=== PATIENT | female | born 1965 | race Caucasian/White ===

== ENCOUNTER → 2016-09-06 | Outpatient (CLI) | payer OTHER ==
[~2016-09-06] MED LIST: DEXI30CA PO; GASTROGRAFIN SOLUTION 30ML (Q9963) As Ordered ONE; ISOVUE-370 76% 100ML VIAL (Q9967) As Ordered ONE; LANS30CA PO; NORT50CA PO; PROP80TA PO
--- NOTE | 2016-09-06 17:11 | REP ---
CT ABDOMEN PELVIS WITHOUT AND WITH CONTRAST: 09/06/2016: CLINICAL HISTORY: Diarrhea, perirectal pain. TECHNIQUE: Oral Gastrografin mixture 10 mL of Gastrografin flavored water for two doses per our bowel contrast protocol with a bolus of 100 mL of Isovue-370 and scanning through the abdomen and pelvis. Precontrast scanning also obtained through the abdomen. COMPARISON: 12/19/2008. Findings: CT abdomen: Lung bases were clear. The heart is not enlarged. There is no pericardial thickening or effusion. Liver and spleen are not enlarged. There are clips from prior cholecystectomy. No hepatosplenomegaly or focal lesion. There is no intrahepatic biliary dilatation. No ascites. Adrenal glands are normal. Pancreas unremarkable. Stomach was intact. There is stool and gas in the colon without signs of colitis or diverticulitis. The aorta has atherosclerotic calcifications without aneurysm or dissection. No periaortic other retroperitoneal pathologic sized lymphadenopathy. The noncontrast images show no evidence of renal stone disease. There is no hydronephrosis, hydroureter, renal cyst, solid mass or perinephric fluid. No ureteral stone evident. No bladder stone or mass. Small bowel loops unremarkable. The bone windows show the lumbar, lower thoracic spine, facets, lower ribs all intact. CT pelvis: The bony hips, pelvis, sacrum, SI joints, lumbosacral junction and symphysis pubis unremarkable. Bladder is without mass, wall thickening or stone. There are multiple phleboliths in the pelvis. Distal ureters without dilatation or stone. Small bowel loops with contrast and no wall thickening, dilatation or obstruction. Distal left colon, sigmoid and rectum were unremarkable. Uterus is absent. Vaginal cuff intact. No adnexal mass. There is no ventral or inguinal hernia nor pathologic sized inguinal adenopathy. On the last three images of the pelvic portion of the CT, the left side of the perirectal region shows a soft tissue density about 16 x 17 mm. It is only seen in part and is at least 10 mm in length. Suspect a perirectal fluid collection or abscess. There is no inflammatory changes adjacent to it, however. It has CT attenuation values in these. Impression: 1. Status-post cholecystectomy without hepatic mass, biliary dilatation or ascites. Liver, spleen, pancreas, adrenal glands, stomach, aorta and small bowel loops were grossly intact.. A few atherosclerotic calcifications in the aorta without aneurysm. 2. Colon in the abdomen proper are unremarkable. 3. Hysterectomy noted with the vaginal cuff intact and no pelvic or adnexal mass. There is no pelvic free fluid, renal, ureteral or bladder stone. No pelvic mass. 4. No ventral or inguinal hernia nor inguinal adenopathy. 5. Inferior to the anus on the left is a soft tissue mass density at least 17 x [address] attenuation values in the low 70s suggesting perirectal abscess or other soft tissue lesion. This is just to the left side of buttocks cleft. It is incompletely visualized the field of view. No other finding. Signed by Brut Copeland MD 09/07/2016 03:23 P
== END ==
LOC: M RAD 14:15
PROVIDERS: ATTEND Surgery
DX: R19.7 Diarrhea, unspecified (principal)

== ENCOUNTER → 2016-09-15 | Outpatient (CLI) | payer OTHER ==
[~2016-09-15] VITALS: Ht 167.6 cm; Wt 95.3 kg
[~2016-09-15] MED LIST changes: -GASTROGRAFIN SOLUTION 30ML (Q9963) As Ordered ONE; -ISOVUE-370 76% 100ML VIAL (Q9967) As Ordered ONE; +LIDOCAINE 2% INJ 100 MG/5 ML SDV (FOR ANES.) As Ordered ONE; +NS 1,000 ML IV SCH; +PROPOFOL 200 MG/20 ML VIAL As Ordered ONE
--- NOTE | 2016-09-15 09:55 | ROOR ---
Patient Name: Lillian Cee Procedure Date: 09/15/2016 9:27 AM Date of : 1965 Age: 51 Room: [facility] Gender: Female Note Status: Finalized Procedure: Colonoscopy Indications: Suspected irritable bowel syndrome Providers: Thomas Barry Jr, MD Referring MD: Alexsandra STEWARD MD Requesting Provider: Medicines: Propofol per Anesthesia Complications: No immediate complications. Procedure: Pre-Anesthesia Assessment: - Prior to the procedure, a History and Physical was performed, and patient medications and allergies were reviewed. The patient is competent. The risks and benefits of the procedure and the sedation options and risks were discussed with the patient. All questions were answered and informed consent was obtained. Patient identification and proposed procedure were verified by the physician and the nurse in the pre-procedure area and in the procedure room. Mental Status Examination: alert and oriented. Airway Examination: normal oropharyngeal airway and neck mobility. Respiratory Examination: clear to auscultation. CV Examination: normal. ASA Grade Assessment: II - A patient with mild systemic disease. After reviewing the risks and benefits, the patient was deemed in satisfactory condition to undergo the procedure. The anesthesia plan was to use moderate sedation / analgesia (conscious sedation). Immediately prior to administration of medications, the patient was re-assessed for adequacy to receive sedatives. The heart rate, respiratory rate, oxygen saturations, blood pressure, adequacy of pulmonary ventilation, and response to care were monitored throughout the procedure. The physical status of the patient was re-assessed after the procedure. The Colonoscope was introduced through the anus and advanced to the cecum, identified by appendiceal orifice and ileocecal valve. The colonoscopy was performed without difficulty. The patient tolerated the procedure well. The quality of the bowel preparation was adequate and excellent. Findings: The recto-sigmoid colon, sigmoid colon, descending colon, transverse colon, ascending colon, cecum, appendiceal orifice and ileocecal valve appeared normal. A small polyp was found in the rectum. The polyp was removed with a jumbo cold forceps. Resection and retrieval were complete. Impression: - The recto-sigmoid colon, sigmoid colon, descending colon, transverse colon, ascending colon, cecum, appendiceal orifice and ileocecal valve are normal. - One small polyp in the rectum, removed with a jumbo cold forceps. Resected and retrieved. Recommendation: - Return to my office in 2 weeks. Thomas Barry MD Thomas Barry Jr, MD 09/15/2016 9:54:54 AM This report has been signed electronically. Number of Addenda: 0 Note Initiated On: 09/15/2016 9:27 AM Estimated Blood Loss: Estimated blood loss: none.
[2016-09-15 10:19] VITALS: BP 117/80
== END ==
LOC: M OPP 08:41
PROVIDERS: ATTEND Surgery
DX: R19.7 Diarrhea, unspecified (principal); D12.8 Benign neoplasm of rectum; K59.00 Constipation, unspecified; L05.91 Pilonidal cyst without abscess; I10 Essential (primary) hypertension; K21.9 Gastro-esophageal reflux disease without esophagitis; F17.210 Nicotine dependence, cigarettes, uncomplicated; Z79.899 Other long term (current) drug therapy; J30.89 Other allergic rhinitis; J30.1 Allergic rhinitis due to pollen; I25.2 Old myocardial infarction

== ENCOUNTER → 2016-10-10 | Outpatient (REF) | payer OTHER ==
[~2016-10-10] MED LIST changes: -LIDOCAINE 2% INJ 100 MG/5 ML SDV (FOR ANES.) As Ordered ONE; -NS 1,000 ML IV SCH; -PROPOFOL 200 MG/20 ML VIAL As Ordered ONE
== END ==
LOC: M LAB REF 16:53
PROVIDERS: ATTEND Surgery
DX: D48.5 Neoplasm of uncertain behavior of skin (principal)

== ENCOUNTER → 2016-12-26 | Outpatient (CLI) | payer OTHER ==
[~2016-12-26] MED LIST changes: -DEXI30CA PO; +DEXI30CA2 PO
--- NOTE | 2016-12-27 00:51 | REP ---
Clinical: Chest pain . Comparison: 10/12/2016 Technique: PA and lateral. Findings: The mediastinum and cardiac silhouette are normal. The lung benson are clear and without acute consolidation, effusion, or pneumothorax. The skeletal structures are intact and normal. The patient is status post cholecystectomy. Impression: 1. No acute cardiopulmonary process. Signed by Alex Middleton MD 12/27/2016 12:42 A
== END ==
LOC: M WUC 09:17
PROVIDERS: ATTEND Internal Medicine
DX: R07.9 Chest pain, unspecified (principal)

== ENCOUNTER → 2017-01-23 | Outpatient (CLI) | payer OTHER ==
[~2017-01-23] MED LIST changes: +E-Z-GAS II EFFERVESCENT PACKET (SODIUM BICARB./CITRIC ACID/SIMETHICONE) As Ordered ONE; +E-Z-HD 98% w/w 340GM SUSP BTL As Ordered ONE; +E-Z-PAQUE 96% w/w SUSP 176GM BTL As Ordered ONE
--- NOTE | 2017-01-23 11:09 | REP ---
UPPER GI, SMALL BOWEL FOLLOW THROUGH: The procedure was performed by YASSINE Lujan under the direct supervision of Dr. Jones. All imaging was reviewed with Dr. Jones prior to dictation. The patient was able to ingest liquid barium and air in quantities sufficient to produce a double contrast examination. The oral and pharyngeal stages of deglutition appeared unremarkable. Esophageal transport was prompt and efficient. There was no evidence of esophagitis, stricture, mucosal ring, or hiatal hernia. Gastroesophageal reflux was not observed on this exam. The stomach vegas were normally outlined. Rugal folds were smooth and regular. There was no evidence of gastritis, neoplasm or ulcerative disease. The duodenal vegas were normally outlined. There was no evidence of duodenitis, peptic ulcer disease or neoplasm. The visualized portion of the proximal small bowel was normal in course and caliber. Additional liquid barium was given at the end of the examination in order to perform a small bowel follow through. During fluoroscopy, gentle palpation of the small bowel loops showed them to be freely movable and pliable without evidence of a fixed or angulated loop. The small bowel mucosal pattern was normal in course and caliber. There was no transition to suggest a partial small bowel obstruction. Spot filming of the terminal ileum showed it to be within normal limits. IMPRESSION: Unremarkable double contrast upper GI examination and small bowel follow through. Fluoroscopy time is 4 minutes and 4 seconds. Reviewed by YASSINE Ocampo 01/23/2017 11:11 AEdited and Signed by Jay Jones MD 01/23/2017 02:41 P
--- NOTE | 2017-01-23 12:00 | REP ---
The procedure was performed by YASSINE Venegas under the direct supervision of Dr. Jones. All imaging was reviewed with Dr. Jones prior to dictation. This is the lathe set up person film for the upper GI, small bowel follow-through series. Please see upper GI small bowel follow-through series for complete report on that. The lathe set up person film shows no organomegaly or pathological masses. There are cholecystectomy clips noted in the right upper quadrant of the abdomen. Otherwise, unremarkable lathe set up person film. Reviewed by YASSINE Ocampo 01/23/2017 12:07 PEdited and Signed by Jay Jones MD 01/23/2017 02:42 P
== END ==
LOC: M RAD 08:34
PROVIDERS: ATTEND Surgery
DX: R13.10 Dysphagia, unspecified (principal)

== ENCOUNTER 2017-02-07 09:38 | Day surgery (SDC) | payer OTHER ==
[~2017-02-07] VITALS: Ht 167.6 cm; Wt 95.3 kg
[~2017-02-07 09:38] MED LIST changes: -E-Z-GAS II EFFERVESCENT PACKET (SODIUM BICARB./CITRIC ACID/SIMETHICONE) As Ordered ONE; -E-Z-HD 98% w/w 340GM SUSP BTL As Ordered ONE; -E-Z-PAQUE 96% w/w SUSP 176GM BTL As Ordered ONE
[2017-02-07] MEDS ORDERED: LR 1,000 ML IV SCH ×2 (09:45→13:30)
[2017-02-07] MEDS: LR 1,000 ML IV ONE (10:15)
[2017-02-07] MEDS ORDERED: PERCOCET 5MG/325MG TAB As Ordered ONE (10:47)
--- NOTE | 2017-02-07 12:35 | ROOR ---
Patient Name: Lillian Cee Procedure Date: 02/07/2017 12:22 PM Date of : 1965 Age: 51 Room: Main OR Gender: Female Note Status: Finalized Procedure: Upper GI endoscopy Indications: Suspected esophageal reflux Providers: Thomas Barry Jr, MD Referring MD: Thomas Barry Jr, MD Requesting Provider: Medicines: General Anesthesia Complications: No immediate complications. Procedure: Pre-Anesthesia Assessment: - Prior to the procedure, a History and Physical was performed, and patient medications and allergies were reviewed. The patient is competent. The risks and benefits of the procedure and the sedation options and risks were discussed with the patient. All questions were answered and informed consent was obtained. Patient identification and proposed procedure were verified by the physician and the nurse in the pre-procedure area and in the procedure room. Mental Status Examination: alert and oriented. Airway Examination: normal oropharyngeal airway and neck mobility. Respiratory Examination: clear to auscultation. CV Examination: normal. ASA Grade Assessment: II - A patient with mild systemic disease. After reviewing the risks and benefits, the patient was deemed in satisfactory condition to undergo the procedure. The anesthesia plan was to use moderate sedation / analgesia (conscious sedation). Immediately prior to administration of medications, the patient was re-assessed for adequacy to receive sedatives. The heart rate, respiratory rate, oxygen saturations, blood pressure, adequacy of pulmonary ventilation, and response to care were monitored throughout the procedure. The physical status of the patient was re-assessed after the procedure. The Endoscope was introduced through the mouth, and advanced to the second part of duodenum. The upper GI endoscopy was accomplished without difficulty. The patient tolerated the procedure well. Findings: The upper third of the esophagus, middle third of the esophagus and lower third of the esophagus were normal. A small hiatal hernia was present. The cardia, gastric fundus and gastric body were normal. Striped mildly erythematous mucosa without bleeding was found in the gastric antrum and in the prepyloric region of the stomach. Biopsies were taken with a cold forceps for histology. The duodenal bulb, first portion of the duodenum and second portion of the duodenum were normal. Impression: - Normal upper third of esophagus, middle third of esophagus and lower third of esophagus. - Small hiatal hernia. - Normal cardia, gastric fundus and gastric body. - Erythematous mucosa in the antrum and prepyloric region of the stomach. Biopsied. - Normal duodenal bulb, first portion of the duodenum and second portion of the duodenum. Recommendation: - Discharge patient to home (ambulatory). - Return to my office as previously scheduled. Thomas Barry MD Thomas Barry Jr, MD 02/07/2017 12:35:07 PM This report has been signed electronically. Number of Addenda: 0 Note Initiated On: 02/07/2017 12:22 PM Estimated Blood Loss: Estimated blood loss: none.
[2017-02-07] MEDS ORDERED: dexameTHASONE 4 MG/ML 1ML VIAL (J1100) As Ordered ONE (12:39)
[2017-02-07] MEDS ORDERED: KETOROLAC 60 MG/2 ML VIAL (J1885) As Ordered ONE (12:39)
[2017-02-07] MEDS ORDERED: LIDOCAINE 2% INJ 100 MG/5 ML SDV (FOR ANES.) As Ordered ONE (12:39)
[2017-02-07] MEDS ORDERED: fentaNYL 100 MCG/2 ML INJECTION (J3010) As Ordered ONE (12:39)
[2017-02-07] MEDS ORDERED: PROPOFOL 200 MG/20 ML VIAL As Ordered ONE (12:39)
[2017-02-07] MEDS ORDERED: MIDAZOLAM INJ 2 MG/2 ML VIAL (J2250) As Ordered ONE (12:39)
[2017-02-07] MEDS ORDERED: ROCURONIUM BROMIDE 50 MG/5 ML VIAL/SYRINGE As Ordered ONE (12:39)
[2017-02-07] MEDS ORDERED: SUCCINYLCHOLINE 100 MG/5 ML SYRINGE (J0330) As Ordered ONE (12:40)
[2017-02-07] MEDS: BUPIVACAINE/EPIN 0.25% 30 ML VIAL As Ordered ONE (13:00)
[2017-02-07] MEDS ORDERED: PERCOCET 5MG/325MG TAB PO PRN (13:30)
[2017-02-07] MEDS ORDERED: ONDANSETRON 4MG/2ML VIAL (J2405) IV PRN (13:30)
[2017-02-07] MEDS ORDERED: fentaNYL 100 MCG/2 ML INJECTION (J3010) IV PRN (13:30)
[2017-02-07] MEDS ORDERED: METOCLOPRAMIDE INJ 10MG/2ML VIAL (J2765) IV PRN (13:30)
[2017-02-07 14:50] VITALS: BP 167/80
--- NOTE | 2017-02-07 16:12 | RO ---
DATE OF PROCEDURE: 02/07/2017 PREOPERATIVE DIAGNOSIS: Perianal lesion. POSTOPERATIVE DIAGNOSIS: Perianal lesion. PROCEDURE: Excision of perianal lesions. SURGEON: Thomas Barry ANESTHESIA: General endotracheal anesthesia ESTIMATED BLOOD LOSS: Was minimal. FLUIDS: Crystalloid. BRIEF PROCEDURE SUMMARY: The patient was brought to the operating room was given general anesthesia after adequate anesthesia and preoperative antibiotics were given the patient underwent upper endoscopy. After this was completed then she was placed in stirrups and was prepped and draped in sterile fashion. Next, an elliptical incision was made around the perianal lesion after using a marker to identify / make the elliptical marking and this was made with a 15 blade. Electrocautery was used cut through dermis, underlying subcutaneous tissue. The care was taken to the anal side stay close to the lesion itself, staying away from the perianal structures. In any case, the dissection continued down through the fatty tissue and was removed in its entirety using combination of blunt and sharp dissection as well as electrocautery. Deep subcutaneous tissue was brought together with #2-0 Vicryl, #3-0 Vicryl was used to approximate the superficial subcutaneous tissue and #3-0 Chromic were used to approximate the skin and dry sterile dressing was applied. The patient was awakened from anesthesia, extubated, brought to recovery room awake, alert and hemodynamically stable. Sponge and needle counts correct times two.
== END 2017-02-07 15:20 | disposition home or self-care (01) ==
LOC: M SDC 09:38
PROVIDERS: ATTEND Surgery
DX: K61.0 Anal abscess (principal); K44.9 Diaphragmatic hernia without obstruction or gangrene; K31.89 Other diseases of stomach and duodenum; K21.9 Gastro-esophageal reflux disease without esophagitis; R07.9 Chest pain, unspecified; I25.2 Old myocardial infarction; I10 Essential (primary) hypertension; R06.83 Snoring; Z90.710 Acquired absence of both cervix and uterus; Z91.09 Other allergy status, other than to drugs and biological substances; Z72.0 Tobacco use; Z79.899 Other long term (current) drug therapy

== ENCOUNTER → 2017-10-17 | Outpatient (CLI) | payer OTHER | LOC: M WUC 09:17 | DX: R05 Cough (principal) ==

== ENCOUNTER → 2018-03-27 | Outpatient (CLI) | payer OTHER ==
[~2018-03-27] MED LIST changes: -DEXI30CA2 PO; -LANS30CA PO; +METHACHOLINE KIT (J7674) INH; -NORT50CA PO; -PROP80TA PO
== END ==
LOC: M CARPUL 06:28
DX: R05 Cough (principal)
CPT/HCPCS: J7674

== ENCOUNTER → 2018-09-11 | Outpatient (CLI) | payer OTHER ==
[~2018-09-11] MED LIST changes: +DEXI30CA2 PO; +LANS30CA PO; -METHACHOLINE KIT (J7674) INH; +NORT50CA PO; +PROP80TA PO
--- NOTE | 2018-09-11 14:37 | REP ---
REASON FOR EXAM: Followup lung nodules. COMPARISON EXAM: 03/12/2018. The mediastinal and pulmonary onesimo are essentially unchanged. No mass or adenopathy has developed. There are no pleural or pericardial effusions. The images upper abdomen and imaged osseous structures are essentially unchanged. Elevation of the lung benson shows stable biapical pleuroparenchymal scarring. There is a ground-glass nodule in the left upper lobe which has increased in size and has better border definition compared to the prior exam. It now measures 8 mm. There are scattered stable noncalcified pulmonary nodules and multiple incidental calcified pulmonary nodules. No new solid nodules or spiculated masses have developed. IMPRESSION: 1. There is a ground-glass nodule in the left upper lobe as described above. The exact etiology is uncertain. Although subtle in its change, when compared to the prior exam, it has certainly not improved. As such, I would recommend a short interval 3-month followup. 2. Other lung benson findings and chronic changes as described above. Electronically Signed by Hudson Jarvis DO 09/11/2018 03:53 P
== END ==
LOC: M RAD 13:17
PROVIDERS: ATTEND Internal Medicine Pulmonary Disease
DX: R91.8 Other nonspecific abnormal finding of lung field (principal)

== ENCOUNTER 2018-11-08 06:55 | Day surgery (SDC) | payer OTHER ==
[~2018-11-08] VITALS: Ht 167.6 cm; Wt 91.6 kg
[~2018-11-08 06:55] MED LIST changes: +AMLO2.5C PO; +AZEL0.055 NARES; +BREO1INH3 INH; +FLON1SPR; +NS 1,000 ML IV ONE
--- NOTE | 2018-11-08 08:14 | ROOR ---
Patient Name: Lillian Cee Procedure Date: 11/08/2018 7:58 AM Date of : 1965 Age: 53 Room: [facility] Gender: Female Note Status: Finalized Procedure: Upper GI endoscopy Indications: Suspected esophageal reflux Providers: Thomas Barry Jr, MD Referring MD: Alexsandra STEWARD MD Requesting Provider: Medicines: Propofol per Anesthesia Complications: No immediate complications. Procedure: Pre-Anesthesia Assessment: - Prior to the procedure, a History and Physical was performed, and patient medications and allergies were reviewed. The patient is competent. The risks and benefits of the procedure and the sedation options and risks were discussed with the patient. All questions were answered and informed consent was obtained. Patient identification and proposed procedure were verified by the physician and the nurse in the pre-procedure area and in the procedure room. Mental Status Examination: alert and oriented. Airway Examination: normal oropharyngeal airway and neck mobility. Respiratory Examination: clear to auscultation. CV Examination: normal. ASA Grade Assessment: II - A patient with mild systemic disease. After reviewing the risks and benefits, the patient was deemed in satisfactory condition to undergo the procedure. The anesthesia plan was to use moderate sedation / analgesia (conscious sedation). Immediately prior to administration of medications, the patient was re-assessed for adequacy to receive sedatives. The heart rate, respiratory rate, oxygen saturations, blood pressure, adequacy of pulmonary ventilation, and response to care were monitored throughout the procedure. The physical status of the patient was re-assessed after the procedure. The Endoscope was introduced through the mouth, and advanced to the second part of duodenum. The upper GI endoscopy was accomplished without difficulty. The patient tolerated the procedure well. Findings: The upper third of the esophagus, middle third of the esophagus and lower third of the esophagus were normal. Diffuse mildly erythematous mucosa without bleeding was found in the gastric antrum. Biopsies were taken with a cold forceps for histology. LA Grade A (one or more mucosal breaks less than 5 mm, not extending between tops of 2 mucosal folds) esophagitis was found at the gastroesophageal junction. Biopsies were taken with a cold forceps for histology. The cardia, gastric fundus, gastric body, prepyloric region of the stomach and pylorus were normal. The duodenal bulb, first portion of the duodenum and second portion of the duodenum were normal. Impression: - Normal upper third of esophagus, middle third of esophagus and lower third of esophagus. - Erythematous mucosa in the antrum. Biopsied. Probable bile gastritis - LA Grade A reflux esophagitis. Biopsied. - Normal cardia, gastric fundus, gastric body, prepyloric region of the stomach and pylorus. - Normal duodenal bulb, first portion of the duodenum and second portion of the duodenum. Recommendation: - Discharge patient to home (ambulatory). - Return to my office as previously scheduled. - Use sucralfate tablets 1 gram PO BID daily. Thomas Barry MD Thomas Barry Jr, MD 11/08/2018 8:13:38 AM Electronically signed by Thomas Barry Jr, MD Number of Addenda: 0 Note Initiated On: 11/08/2018 7:58 AM Estimated Blood Loss: Estimated blood loss: none.
[2018-11-08] MEDS ORDERED: PROPOFOL 200 MG/20 ML VIAL As Ordered ONE (08:18)
[2018-11-08] MEDS ORDERED: LIDOCAINE 2% INJ 100 MG/5 ML SDV (FOR ANES.) As Ordered ONE (08:27)
--- NOTE | 2018-11-08 08:41 | ROOR ---
Patient Name: Lillian Cee Procedure Date: 11/08/2018 7:59 AM Date of : 1965 Age: 53 Room: [facility] Gender: Female Note Status: Finalized Procedure: Colonoscopy Indications: High risk colon cancer surveillance: Personal history of colonic polyps Providers: Thomas Barry Jr, MD Referring MD: Alexsandra STEWARD MD Requesting Provider: Medicines: Propofol per Anesthesia Complications: No immediate complications. Procedure: Pre-Anesthesia Assessment: - Prior to the procedure, a History and Physical was performed, and patient medications and allergies were reviewed. The patient is competent. The risks and benefits of the procedure and the sedation options and risks were discussed with the patient. All questions were answered and informed consent was obtained. Patient identification and proposed procedure were verified by the physician and the nurse in the pre-procedure area and in the procedure room. Mental Status Examination: alert and oriented. Airway Examination: normal oropharyngeal airway and neck mobility. Respiratory Examination: clear to auscultation. CV Examination: normal. ASA Grade Assessment: II - A patient with mild systemic disease. After reviewing the risks and benefits, the patient was deemed in satisfactory condition to undergo the procedure. The anesthesia plan was to use moderate sedation / analgesia (conscious sedation). Immediately prior to administration of medications, the patient was re-assessed for adequacy to receive sedatives. The heart rate, respiratory rate, oxygen saturations, blood pressure, adequacy of pulmonary ventilation, and response to care were monitored throughout the procedure. The physical status of the patient was re-assessed after the procedure. The Colonoscope was introduced through the anus and advanced to the cecum, identified by appendiceal orifice and ileocecal valve. The colonoscopy was performed without difficulty. The patient tolerated the procedure well. Findings: The recto-sigmoid colon, sigmoid colon, transverse colon, cecum, appendiceal orifice and ileocecal valve appeared normal. Five sessile polyps were found in the rectum, recto-sigmoid colon, descending colon and ascending colon. The polyps were diminutive in size. These polyps were removed with a cold snare. Resection and retrieval were complete. Impression: - The recto-sigmoid colon, sigmoid colon, transverse colon, cecum, appendiceal orifice and ileocecal valve are normal. - Five diminutive polyps in the rectum, at the recto-sigmoid colon, in the descending colon and in the ascending colon, removed with a cold snare. Resected and retrieved. Recommendation: - Discharge patient to home (ambulatory). - Repeat colonoscopy in 5 years for surveillance. Thomas Barry MD Thomas Barry Jr, MD 11/08/2018 8:40:29 AM Electronically signed by Thomas Barry Jr, MD Number of Addenda: 0 Note Initiated On: 11/08/2018 7:59 AM Estimated Blood Loss: Estimated blood loss: none.
[2018-11-08 09:06] VITALS: BP 159/92
== END 2018-11-08 09:08 | disposition home or self-care (01) ==
LOC: M OPP 06:55
PROVIDERS: ATTEND Surgery
DX: D12.2 Benign neoplasm of ascending colon (principal); D12.4 Benign neoplasm of descending colon; D12.7 Benign neoplasm of rectosigmoid junction; K62.1 Rectal polyp; K21.0 Gastro-esophageal reflux disease with esophagitis; K31.89 Other diseases of stomach and duodenum; Z86.010 Personal history of colon polyps

== ENCOUNTER 2019-05-07 11:46 | Emergency (ER) | payer OTHER ==
[~2019-05-07] VITALS: Ht 167.6 cm; Wt 97.0 kg
[~2019-05-07 11:46] MED LIST changes: -AMLO2.5C PO; +AMLO2.5C4 PO; -NS 1,000 ML IV ONE
[2019-05-07] MEDS ORDERED: PANTOPRAZOLE 40MG INJ (PROTONIX) (C9113) IV ONE (12:30)
[2019-05-07] MEDS ORDERED: GI COCKTAIL 50ML BTL(HYOSCYAMINE/MAALOX/LIDOCAINE VISCOUS)(1:3:1) PO ONE (12:30)
[2019-05-07] MEDS ORDERED: ASPIRIN 81 MG CHEW TABLET PO ONE (12:30)
--- NOTE | 2019-05-07 12:32 | REP ---
CHEST, SINGLE VIEW: There is no evidence of acute infiltrate. No pleural effusion is seen. The heart is normal in size. The mediastinal silhouette is unremarkable. The visualized osseous structures are intact. IMPRESSION: No acute pulmonary disease. Electronically Signed by Nj Hummel MD 05/10/2019 05:11 P
[2019-05-07 12:43] LABS: BASO # 0.1 10^3/uL (0.0-0.2); BASO % 0.6 % (0.0-1.0); EOS % 0.5 % (0.0-3.0); HEMATOCRIT 46.6 % (36.0-47.0); HEMOGLOBIN 15.1 g/dl (12.0-15.5); LYMPH # 3.1 10^3/uL (1.5-5.0); LYMPH % 35.5 % (24.0-44.0); MEAN CORPUSCULAR HEMOGLOBIN 31.1 pg (27.0-33.0); MEAN CORPUSCULAR HGB CONC 32.4 g/dl (32.0-36.5); MEAN CORPUSCULAR VOLUME 96.1 fl (80.0-96.0); MONO # 0.5 10^3/uL (0.0-0.8); MONO % 5.6 % (0.0-5.0); NEUTROPHILS % 57.6 % (36.0-66.0); PLATELET COUNT, AUTOMATED 259 10^3/uL (150-450); RED BLOOD COUNT 4.85 10^6/uL (4.00-5.40); WHITE BLOOD COUNT 8.7 10^3/uL (4.0-10.0)
[2019-05-07 13:13] LABS: ALBUMIN 4.1 GM/DL (3.2-5.2); ALT/SGPT 25 U/L (12-78); BILIRUBIN,DIRECT 0.1 MG/DL (0.0-0.2); BILIRUBIN,TOTAL 0.5 MG/DL (0.2-1.0); BLOOD UREA NITROGEN 12 MG/DL (7-18); CALCIUM LEVEL 9.3 MG/DL (8.5-10.1); CARBON DIOXIDE LEVEL 25 MEQ/L (21-32); CHLORIDE LEVEL 108 MEQ/L (98-107); CK-MB VALUE MASS < 1.0 NG/ML (<3.6); CPK CREATINE PHOSPHOKINASE 86 U/L (26-192); CREATININE FOR GFR 0.59 MG/DL (0.55-1.30); GLOMERULAR FILTRATION RATE > 60.0 (>51); GLUCOSE, FASTING 94 MG/DL (70-100); LIPASE 91 U/L (73-393); MB/CK RELATIVE INDEX 1.16 (< OR =4); NT-PRO BNP 47 PG/ML (<125); POTASSIUM SERUM 4.2 MEQ/L (3.5-5.1); SODIUM LEVEL 140 MEQ/L (136-145); THYROID STIMULATING HORMONE 0.884 uIU/ML (0.358-3.740); TOTAL PROTEIN 7.4 GM/DL (6.4-8.2); TROPONIN I < 0.02 NG/ML (< 0.10)
[2019-05-07] MEDS ORDERED: ISOVUE-370 76% 100ML VIAL (Q9967) As Ordered ONE (13:39)
[2019-05-07] MEDS ORDERED: PROT1TAB2 PO (15:00)
--- NOTE | 2019-05-07 15:03 | REP ---
CT ANGIOGRAM CHEST: TECHNIQUE: Axial contrast enhanced images from the thoracic inlet to the upper abdomen using 100 mL Isovue 370 intravenous contrast material with multiplanar reformations. There is no CT evidence of pulmonary embolism. There is no thoracic aortic aneurysm or dissection. The heart is not enlarged. There is no pleural or pericardial effusion. There is no mediastinal, hilar or chest wall lymphadenopathy. A few calcified lymph nodes are seen in the mediastinum. There is a large calcified granuloma in the right middle lobe. There is mild scattered pleural and parenchymal scarring. Focal ground-glass opacity in the left upper lobe is stable compared to the prior exam of 12/18/2018. Tiny calcified granulomas are seen in the spleen. There are mild diffuse degenerative changes of the spine. IMPRESSION: Evidence of prior granulomatous disease. No evidence of pulmonary embolism or aortic dissection. Focal ground-glass opacity left upper lobe remains stable. Electronically Signed by Nj Hummel MD 05/10/2019 05:14 P
[2019-05-07 15:14] VITALS: BP 110/58
--- NOTE | 2019-05-07 18:35 | ECGEPIP ---
[facility] - ED Test Date: 2019-05-07 Pat Name: MAGO PINEDA Department: Room: - Gender: Female Jig Operator: yan : 1965 Requested By: Sharon Zayas Order Number: [id number] Reading MD: Drew Weiner Measurements Intervals [place] Rate: 66 P: 54 MA: 137 QRS: 38 QRSD: 98 T: 38 QT: 407 QTc: 428 Interpretive Statements SINUS RHYTHM NSTTW ABNORMALITIES SIMILAR TO 05/18/16 Electronically Signed on 05-07-2019 18:35:28 EST by Drew Weiner
== END 2019-05-07 15:15 | disposition home or self-care (01) ==
LOC: M ED 11:46
DX: R10.13 Epigastric pain (principal); R07.81 Pleurodynia; I10 Essential (primary) hypertension; J45.909 Unspecified asthma, uncomplicated; Z79.899 Other long term (current) drug therapy; Z87.891 Personal history of nicotine dependence
CPT/HCPCS: 71045; 71275; 80048; 80076; 82550; 82553; 83690; 83880; 84443; 84484; 85025; 93005; 93041; 94760; 96374; 99285; C9113; Q9967

== ENCOUNTER → 2019-05-09 | Outpatient (CLI) | payer OTHER ==
[~2019-05-09] MED LIST changes: +PROT1TAB2 PO
[2019-05-09 20:24] LABS: BASO % 0.5 % (0.0-1.0); EOS % 0.5 % (0.0-3.0); HEMATOCRIT 42.5 % (36.0-47.0); HEMOGLOBIN 13.7 g/dl (12.0-15.5); LYMPH # 3.4 10^3/uL (1.5-5.0); LYMPH % 38.8 % (24.0-44.0); MEAN CORPUSCULAR HEMOGLOBIN 31.3 pg (27.0-33.0); MEAN CORPUSCULAR HGB CONC 32.2 g/dl (32.0-36.5); MONO # 0.6 10^3/uL (0.0-0.8); MONO % 7.2 % (0.0-5.0); NEUTROPHILS # 4.6 10^3/uL (1.5-8.5); NEUTROPHILS % 52.7 % (36.0-66.0); PLATELET COUNT, AUTOMATED 266 10^3/uL (150-450); RED BLOOD COUNT 4.38 10^6/uL (4.00-5.40); WHITE BLOOD COUNT 8.6 10^3/uL (4.0-10.0)
[2019-05-09 23:23] LABS: ALBUMIN 3.9 GM/DL (3.2-5.2); ALT/SGPT 23 U/L (12-78); BILIRUBIN,TOTAL 0.5 MG/DL (0.2-1.0); BLOOD UREA NITROGEN 11 MG/DL (7-18); CALCIUM LEVEL 9.2 MG/DL (8.5-10.1); CARBON DIOXIDE LEVEL 30 MEQ/L (21-32); CHLORIDE LEVEL 104 MEQ/L (98-107); CREATININE FOR GFR 0.81 MG/DL (0.55-1.30); GLOMERULAR FILTRATION RATE > 60.0 (>51); GLUCOSE, FASTING 71 MG/DL (70-100); IMMUNOGLOBULIN G 732 MG/DL (681-1648); IMMUNOGLOBULIN M 58.6 MG/DL (40-230); POTASSIUM SERUM 4.5 MEQ/L (3.5-5.1); SODIUM LEVEL 138 MEQ/L (136-145); TOTAL PROTEIN 7.2 GM/DL (6.4-8.2)
[2019-05-10 10:51] LABS: RUBELLA IgG QUALITATIVE IMMUNE (IMMUNE)
== END ==
LOC: M WUC 15:19
PROVIDERS: ATTEND Allergy & Immunology Allergy
DX: L50.1 Idiopathic urticaria (principal); D84.9 Immunodeficiency, unspecified

== ENCOUNTER → 2020-01-09 | Outpatient (REF) | payer OTHER ==
[~2020-01-09] MED LIST changes: +NORT25CA2; +OMEP40CA97 PO; +SUCR1SS PO
[2020-02-26 12:47] LABS: FOLLICLE STIMULATING HORMONE 66.5 mIU/mL; LUTEINIZING HORMONE 26.1 mIU/mL
== END ==
LOC: M LAB REF 12:47
PROVIDERS: ATTEND Internal Medicine
DX: N95.1 Menopausal and female climacteric states (principal)

== ENCOUNTER → 2020-01-14 | Outpatient (REF) | payer OTHER ==
[2020-02-18 13:01] LABS: IGASUB2 See Separate Report; IGASUB3 See Separate Report; IgA SERUM (part of Subclasses) See Separate Report; TISSUE TRANSGLUTAMINASE IgA SEE SEPARATE REPORT UNITS; UNITSIGA FOR GLIADIN IGA SEE SEPARATE REPORT UNITS; UNITSIGG FOR GLIADIN IGG SEE SEPARATE REPORT UNITS
[2020-03-09 03:47] LABS: ALBUMIN 4.1 GM/DL (3.2-5.2); BILIRUBIN,DIRECT 0.1 MG/DL (0.0-0.2); BILIRUBIN,TOTAL 0.3 MG/DL (0.2-1.0); TOTAL PROTEIN 7.5 GM/DL (6.4-8.2)
== END ==
LOC: M WUC 12:44
PROVIDERS: ATTEND Internal Medicine Gastroenterology
DX: R10.13 Epigastric pain (principal)

== ENCOUNTER 2020-02-04 07:38 | Emergency (ER) | payer OTHER ==
[~2020-02-04 07:38] MED LIST changes: -NORT25CA2; -OMEP40CA97 PO; -SUCR1SS PO
[2020-02-04] MEDS ORDERED: GI COCKTAIL 50ML BTL(HYOSCYAMINE/MAALOX/LIDOCAINE VISCOUS)(1:3:1) As Ordered ONE (07:52)
[2020-02-04] MEDS ORDERED: ISOVUE-370 76% 100ML VIAL As Ordered ONE (08:18)
[2020-02-04] MEDS ORDERED: OMEP40CA97 PO (10:43)
[2020-02-04] MEDS ORDERED: SUCR1SS PO (10:43)
[2020-02-04 10:45] LABS: BASO # 0.1 10^3/uL (0.0-0.2); BASO % 0.7 % (0.0-1.0); EOS # 0.2 10^3/uL (0.0-0.5); EOS % 2.3 % (0.0-3.0); HEMATOCRIT 43.8 % (36.0-47.0); HEMOGLOBIN 14.3 g/dl (12.0-15.5); INR 0.99; LYMPH # 3.1 10^3/uL (1.5-5.0); LYMPH % 42.4 % (24.0-44.0); MEAN CORPUSCULAR HGB CONC 32.6 g/dl (32.0-36.5); MONO # 0.5 10^3/uL (0.0-0.8); MONO % 6.5 % (0.0-5.0); NEUTROPHILS # 3.5 10^3/uL (1.5-8.5); NEUTROPHILS % 47.8 % (36.0-66.0); PARTIAL THROMBOPLASTIN TIME 27.1 SECONDS (25.0-38.4); PLATELET COUNT, AUTOMATED 285 10^3/uL (150-450); PROTHROMBIN TIME 13.3 SECONDS (11.8-14.0); RED BLOOD COUNT 4.61 10^6/uL (4.00-5.40); WHITE BLOOD COUNT 7.3 10^3/uL (4.0-10.0)
[2020-02-04 11:46] LABS: ALBUMIN 3.6 GM/DL (3.2-5.2); ALT/SGPT 26 U/L (12-78); BILIRUBIN,DIRECT < 0.1 MG/DL (0.0-0.2); BILIRUBIN,TOTAL 0.4 MG/DL (0.2-1.0); LIPASE 186 U/L (73-393); NT-PRO BNP 49 PG/ML (<125); TOTAL PROTEIN 7.2 GM/DL (6.4-8.2)
--- NOTE | 2020-02-10 12:10 | ECGEPIP ---
[facility] - ED Test Date: 2020-02-04 Pat Name: MAGO PINEDA Department: Room: - Gender: Female Lapel Baster: NANCI : 1965 Requested By: ELANA Blanchard Order Number: [id number] Reading MD: Sharon Zayas Measurements Intervals [place] Rate: 62 P: 35 LA: 143 QRS: 3 QRSD: 101 T: 35 QT: 405 QTc: 414 Interpretive Statements SINUS RHYTHM MODERATE VOLTAGE CRITERIA FOR LVH, CONSIDER NORMAL VARIANT BORDERLINE ECG SEE SCANNED DOWNTIME REPORT
[2020-04-08] MEDS ORDERED: NORT25CA2 (10:33)
== END 2020-02-04 11:02 | disposition home or self-care (01) ==
LOC: M ED 07:38
DX: K21.0 Gastro-esophageal reflux disease with esophagitis (principal); I10 Essential (primary) hypertension; J45.909 Unspecified asthma, uncomplicated; M18.9 Osteoarthritis of first carpometacarpal joint, unspecified; Z79.899 Other long term (current) drug therapy
CPT/HCPCS: 36415; 71275; 74177; 80076; 83690; 83880; 84443; 85025; 85610; 85730; 93005; 99281; Q9967

== ENCOUNTER → 2020-02-10 | Outpatient (REF) | payer OTHER ==
[~2020-02-10] MED LIST changes: +NORT25CA2; +OMEP40CA97 PO; +SUCR1SS PO
[2020-02-12 15:08] LABS: ANTINUCLEAR ANTIBODIES DIRECT Negative (Negative)
== END ==
LOC: M LAB REF 16:52
PROVIDERS: ATTEND Physician Assistant Medical
DX: R53.83 Other fatigue (principal); R25.2 Cramp and spasm

== ENCOUNTER → 2020-02-25 | Outpatient (CLI) | payer OTHER ==
--- NOTE | 2020-03-04 08:32 | REP ---
PET CT HISTORY: Solitary pulmonary nodule. COMPARISON: Made with multiple prior chest CTs, the most of recent which is from 02/04/2020, 05/07/2019, 11/18/2018, and 03/12/2018 prior CTs are also reviewed. TECHNIQUE: 45 minutes following the intravenous injection of a 9.05 mCi dose of F18 fluorodeoxyglucose (FDG), three-dimensional PET CT imaging is acquired from the skull base to the proximal thighs. PET CT FINDINGS: Head and neck soft tissues are unremarkable. The 13-mm irregular nodular density seen in the left upper lobe on recent chest CT is again noted on todays CT study. There is barely visible nonhypermetabolic accumulation of FDG tracer in this 13-mm pulmonary nodule. Maximum standard uptake value is 1.28. This is not hypermetabolic. No hypermetabolic pulmonary parenchymal uptake is seen elsewhere in the chest. No hilar or mediastinal hypermetabolic uptake is seen. There is some skeletal muscle uptake about the right shoulder noted incidentally. In the abdomen and pelvis, normal hepatic, splenic, gastrointestinal, and genitourinary FDG accumulation is seen. No abnormal hypermetabolic uptake is seen in the abdomen or pelvis. IMPRESSION: The 13-mm left upper lobe pulmonary nodule is not hypermetabolic, maximum SUV value 1.28. Otherwise negative PET scintigraphy. Low-grade malignancy is not excluded. MTDD
== END ==
LOC: M PLARAD 07:26
PROVIDERS: ATTEND Internal Medicine Pulmonary Disease
DX: R91.1 Solitary pulmonary nodule (principal)
CPT/HCPCS: 78815; A9552

== ENCOUNTER → 2020-04-08 | Outpatient (CLI) | payer OTHER | LOC: M LABSMTC 12:23 | PROVIDERS: ATTEND Anesthesiology | DX: Z01.812 Encounter for preprocedural laboratory examination (principal); Z20.828 Contact with and (suspected) exposure to other viral communicable diseases ==

== ENCOUNTER 2020-04-13 10:21 | Day surgery (SDC) | payer OTHER ==
[~2020-04-13] VITALS: Ht 167.6 cm; Wt 98.4 kg
[~2020-04-13 10:21] MED LIST changes: +NS 1,000 ML IV ONE
[2020-04-13] MEDS ORDERED: propofoL 500 MG/50 ML VIAL As Ordered ONE (11:23)
[2020-04-13] MEDS ORDERED: fentaNYL 100 MCG/2 ML INJECTION (J3010) As Ordered ONE (11:23)
[2020-04-13] MEDS ORDERED: LIDOCAINE 2% 100MG/5ML SDV (FOR ANES.) As Ordered ONE (11:23)
--- NOTE | 2020-04-13 11:52 | ROOR ---
Patient Name: Lillian Cee Procedure Date: 04/13/2020 11:22 AM Date of : 1965 Age: 54 Room: [facility] Gender: Female Note Status: Finalized Procedure: Upper GI endoscopy Indications: Epigastric abdominal pain, Abdominal pain, Suspected gastro-esophageal reflux disease Providers: Jeffery Naylor MD Referring MD: Alexsandra STEWARD MD Requesting Provider: Medicines: Monitored Anesthesia Care Complications: No immediate complications. Procedure: Pre-Anesthesia Assessment: - Prior to the procedure, a History and Physical was performed, and patient medications and allergies were reviewed. The patient is competent. The risks and benefits of the procedure and the sedation options and risks were discussed with the patient. All questions were answered and informed consent was obtained. Patient identification and proposed procedure were verified by the physician, the nurse and the anesthesiologist in the procedure room. Mental Status Examination: alert and oriented. Airway Examination: normal oropharyngeal airway and neck mobility. Respiratory Examination: clear to auscultation. CV Examination: normal. Prophylactic Antibiotics: The patient does not require prophylactic antibiotics. Prior Anticoagulants: The patient has taken no previous anticoagulant or antiplatelet agents. ASA Grade Assessment: III - A patient with severe systemic disease. After reviewing the risks and benefits, the patient was deemed in satisfactory condition to undergo the procedure. The anesthesia plan was to use monitored anesthesia care (MAC). Immediately prior to administration of medications, the patient was re-assessed for adequacy to receive sedatives. The heart rate, respiratory rate, oxygen saturations, blood pressure, adequacy of pulmonary ventilation, and response to care were monitored throughout the procedure. The physical status of the patient was re-assessed after the procedure. The Endoscope was introduced through the mouth, and advanced to the second part of duodenum. The upper GI endoscopy was accomplished without difficulty. The patient tolerated the procedure well. Findings: LA Grade A (one or more mucosal breaks less than 5 mm, not extending between tops of 2 mucosal folds) esophagitis with no bleeding was found in the distal esophagus. Biopsies were taken with a cold forceps for histology. Verification of patient identification for the specimen was done by the physician and nurse using the patient's name, date and medical record number. Estimated blood loss was minimal. The Z-line was irregular and was found 38 cm from the incisors. The OMER capsule with delivery system was introduced through the mouth and advanced into the esophagus, such that the OMER pH capsule was positioned 32 cm from the incisors, which was 6 cm proximal to the GE junction. Suction was applied to the well of the OMER pH capsule to suck in the adjacent mucosa of the esophagus using the external vacuum pump set at a minimum vacuum pressure of 550 mmHg for 30 seconds. The OMER pH capsule was then deployed by depressing the plunger on top of the handle to advance the locking pin into the mucosa, thereby attaching the capsule to the esophagus. The plunger was then rotated a quarter turn clockwise to release the capsule from the delivery system. The delivery system was then withdrawn. Endoscopy was utilized for probe placement and diagnostic evaluation. The scope was reinserted to evaluate placement of the OMER capsule. Visualization showed the OMER capsule to be in an appropriate position. Scattered mild inflammation characterized by erythema and granularity was found in the gastric antrum. Biopsies were taken with a cold forceps for Helicobacter pylori testing. The duodenal bulb and second portion of the duodenum were normal. Biopsies for histology were taken with a cold forceps for evaluation of celiac disease. Impression: - LA Grade A reflux esophagitis. Rule out Goodman's esophagus. Biopsied. - Z-line irregular, 38 cm from the incisors. - Gastritis. Biopsied. - Normal duodenal bulb and second portion of the duodenum. Biopsied. - The OMER pH capsule was positioned 32 cm from the incisors, which was 6 cm proximal to the GE junction. Recommendation: - Patient has a contact number available for emergencies. The signs and symptoms of potential delayed complications were discussed with the patient. Return to normal activities tomorrow. Written discharge instructions were provided to the patient. - Resume previous diet. - Continue present medications. - Await pathology results. - Telephone GI clinic for pathology results in 2 weeks. - Follow an antireflux regimen. - Return to primary care physician. Jeffery Naylor MD Jeffery Naylor MD 04/13/2020 11:52:44 AM Electronically signed by Jeffery Naylor MD Number of Addenda: 0 Note Initiated On: 04/13/2020 11:22 AM Estimated Blood Loss: Estimated blood loss was minimal.
[2020-04-13 12:00] VITALS: BP 172/77
== END 2020-04-13 12:17 | disposition home or self-care (01) ==
LOC: M OPP 10:21
PROVIDERS: ATTEND Internal Medicine Gastroenterology
DX: K21.00 Gastro-esophageal reflux disease with esophagitis, without bleeding (principal); K22.8 Other specified diseases of esophagus; K29.70 Gastritis, unspecified, without bleeding; R10.13 Epigastric pain; Z79.899 Other long term (current) drug therapy; Z87.891 Personal history of nicotine dependence
CPT/HCPCS: 43239; 88305; 91035; J3010

== ENCOUNTER → 2020-04-27 | Outpatient (CLI) | payer OTHER ==
[~2020-04-27] MED LIST changes: -NS 1,000 ML IV ONE
--- NOTE | 2020-04-27 09:25 | REP ---
INDICATION: SOLITARY PULMONARY NODULE COMPARISON: 02/04/2020, 05/07/2019 TECHNIQUE: Axial noncontrast images from the thoracic inlet to the upper abdomen with coronal and sagittal reformations. This CT examination was performed using the following dose reduction techniques: Automated exposure control, adjustment of mA and/or kv according to the patient's size, and use of iterative reconstruction technique. FINDINGS: Lung benson demonstrate chronic interstitial changes and evidence for prior granulomatous disease including calcified nodule in the right middle lobe. There is a non solid ground-glass nodule in the left upper lobe which appears relatively stable and was identified as non hypermetabolic on PET-CT dated 02/25/2020. No further consolidation, suspicious nodule or mass. No effusion. No pneumothorax. Tracheobronchial tree is patent. No adenopathy noted. The mediastinum demonstrates minimal atherosclerotic changes to the thoracic aorta without aneurysm. No cardiomegaly or pericardial effusion. Small hiatal hernia at the gastroesophageal junction noted. Limited upper abdomen demonstrates normal bilateral adrenal glands and evidence for prior cholecystectomy. IMPRESSION: Relatively stable non solid ground-glass density in the left upper lobe which was non hypermetabolic on PET-CT dated 02/25/2020. No further acute mediastinal or pleuroparenchymal process appreciated. <Electronically signed by Alex Middleton > 04/27/20 [id number]
== END ==
LOC: M RAD 08:57
PROVIDERS: ATTEND Internal Medicine Pulmonary Disease
DX: R91.1 Solitary pulmonary nodule (principal)

== ENCOUNTER → 2020-09-28 | Outpatient (CLI) | payer OTHER ==
[~2020-09-28] MED LIST changes: +E-Z-GAS II EFFERVESCENT PACKET (SODIUM BICARB./CITRIC ACID/SIMETHICONE) As Ordered ONE; +E-Z-HD 98% w/w 340GM SUSP BTL As Ordered ONE; +E-Z-PAQUE 96% w/w SUSP 176GM BTL As Ordered ONE
--- NOTE | 2020-09-28 16:18 | REP ---
INDICATION: K44.9, K21.00- GERD. COMPARISON: None TECHNIQUE: This procedure was performed by Tasha Pritchard [facility], under the direct supervision of Dr. Hummel. Images were reviewed with Dr. Hummel prior to dictation. Liquid barium and gas producing crystals were given in the erect position, as well as liquid barium in the prone oblique position in order to perform a double contrast upper GI examination. FINDINGS: The product scientist film shows no organomegaly or pathological masses. The intestinal gas pattern is unremarkable. The oral and pharyngeal stages of deglutition were unremarkable. Esophageal transport is prompt and efficient and there is no evidence of esophagitis, stricture, or mucosal ring. There is evidence of a small hiatal hernia. Gastroesophageal reflux was visualized to the level of the lesia. The stomach vegas are normally outlined. The rugal folds are smooth and regular. There is no gastritis, neoplasm, or ulcerative disease. The duodenal vegas are normally outlined. The mucosal folds are smooth and regular. There is no duodenitis, peptic ulcer disease or neoplasm. The visualized portion of the proximal small bowel appears normal in course and caliber. IMPRESSION: 1. Small hiatal hernia. 2. Gastroesophageal reflux to the level of the lesia. 0.5 minutes of fluoroscopy time was utilized for this procedure. Some fluoroscopic images are performed with last image hold technology. These images require no additional radiation. <Electronically signed by Tasha Pritchard > 09/28/20 1608 <Electronically signed by Nj Hummel > 09/28/20 1618
== END ==
LOC: M RAD 09:08
PROVIDERS: ATTEND Specialist
DX: K44.9 Diaphragmatic hernia without obstruction or gangrene (principal); K21.9 Gastro-esophageal reflux disease without esophagitis

== ENCOUNTER → 2020-11-03 | Outpatient (CLI) | payer OTHER ==
[~2020-11-03] MED LIST changes: -E-Z-GAS II EFFERVESCENT PACKET (SODIUM BICARB./CITRIC ACID/SIMETHICONE) As Ordered ONE; -E-Z-HD 98% w/w 340GM SUSP BTL As Ordered ONE; -E-Z-PAQUE 96% w/w SUSP 176GM BTL As Ordered ONE
--- NOTE | 2020-11-04 04:11 | REP ---
INDICATION: SOLITARY PULMONARY NODULE COMPARISON: 04/27/2020, 02/04/2020, 01/31/2020, 05/07/2019 TECHNIQUE: Axial noncontrast images from the thoracic inlet to the upper abdomen with coronal and sagittal reformations. This CT examination was performed using the following dose reduction techniques: Automated exposure control, adjustment of mA and/or kv according to the patient's size, and use of iterative reconstruction technique. FINDINGS: Left upper lobe lesion measures roughly 14 mm and has a part solid appearance which is more prominent than prior examinations. Remainder of lung benson demonstrate minimal chronic primarily biapical and basilar scarring along with stable calcified granuloma in the right middle lobe. No further acute consolidation, new nodule or mass. No effusion. No pneumothorax. Tracheobronchial tree is patent. No obvious adenopathy by noncontrast evaluation. Further evaluation of the mediastinum demonstrates stable mild atherosclerotic changes to the thoracic aorta. No cardiomegaly or pericardial effusion. Thyroid gland is grossly normal by CT evaluation. IMPRESSION: 1. The left upper lobe lesion appears slightly more dense than prior examinations. While this is nonspecific, active pathology cannot be excluded. 2. No further acute mediastinal or pleuroparenchymal process appreciated. <Electronically signed by Alex Middleton > 11/04/20 [id number]
== END ==
LOC: M RAD 07:19
PROVIDERS: ATTEND Internal Medicine Pulmonary Disease
DX: R91.1 Solitary pulmonary nodule (principal)

== ENCOUNTER → 2021-01-27 | Outpatient (CLI) | payer OTHER ==
[~2021-01-27] MED LIST changes: +OMEP40CA4 PO; -OMEP40CA97 PO
--- NOTE | 2021-01-29 05:50 | REP ---
INDICATION: SOLITARY PULMONARY NODULE COMPARISON: 11/03/2020, 04/27/2020 TECHNIQUE: Axial noncontrast images from the thoracic inlet to the upper abdomen with coronal and sagittal reformations. This CT examination was performed using the following dose reduction techniques: Automated exposure control, adjustment of mA and/or kv according to the patient's size, and use of iterative reconstruction technique. FINDINGS: Lung benson again demonstrate relatively stable biapical and basilar/lingular scarring. Calcified granuloma in the right middle lobe remains unchanged. There is a 1.8 cm focal non solid ground-glass density in the left apex which is relatively unchanged compared to 11/03/2020, but slightly increased in size when compared with 02/04/2020 and 04/27/2020 examinations. No new consolidation, suspicious nodule or mass. No effusion. No pneumothorax. Tracheobronchial tree is patent. Mediastinum demonstrates stable atherosclerotic changes to the thoracic aorta without aneurysm. Heart and pericardium are normal. No axillary, hilar, or mediastinal adenopathy is appreciated. Thyroid gland is grossly normal. Surrounding musculoskeletal structures without acute osseous abnormality. Limited upper abdomen demonstrates normal bilateral adrenal glands and evidence for prior cholecystectomy. IMPRESSION: 1.8 cm non solid ground-glass density in the left apex essentially unchanged compared with most recent prior examination and mildly increased in size when compared with 04/27/2020. No further new or suspicious process appreciated. <Electronically signed by Alex Middleton > 01/29/21 [id number]
== END ==
LOC: M PLAIMG 10:57
PROVIDERS: ATTEND Internal Medicine Pulmonary Disease
DX: R91.1 Solitary pulmonary nodule (principal)

== ENCOUNTER → 2021-03-04 | Outpatient (CLI) | payer OTHER ==
[2021-03-04 16:28] LABS: PLATELET COUNT, AUTOMATED 316 10^3/uL (150-450)
[2021-03-04 16:38] LABS: INR 0.99; PARTIAL THROMBOPLASTIN TIME 27.5 SECONDS (25.9-37.0); PROTHROMBIN TIME 13.5 SECONDS (12.7-14.5)
== END ==
LOC: M WUC 14:50
PROVIDERS: ATTEND Internal Medicine Pulmonary Disease
DX: R91.1 Solitary pulmonary nodule (principal)

== ENCOUNTER → 2021-03-05 | Outpatient (CLI) | payer OTHER | LOC: M LABSMTC 10:02 | PROVIDERS: ATTEND Anesthesiology | DX: Z01.812 Encounter for preprocedural laboratory examination (principal); Z20.822 Contact with and (suspected) exposure to COVID-19 ==

== ENCOUNTER 2021-03-10 06:07 | Day surgery (SDC) | payer OTHER ==
[~2021-03-10] VITALS: Ht 167.6 cm; Wt 99.1 kg
[~2021-03-10 06:07] MED LIST changes: +ALBUTEROL SULFATE 2.5 MG/0.5 ML INH NEB SOLN INH ONE; +AMIT25TA17 PO; +FAMO20TA PO; +FLOV250A INH; +LIDOCAINE 4% INJ 5ML AMP INH ONE; +PROAAER10 INH
[2021-03-10] MEDS ORDERED: THROMBIN SOLN 5,000 UNITS VIAL As Ordered ONE (07:17)
[2021-03-10] MEDS ORDERED: EPINEPHrine 1MG/10ML SYRINGE 1.5IN As Ordered ONE (07:17)
[2021-03-10] MEDS ORDERED: CETACAINE SPRAY 5GM As Ordered ONE (07:17)
[2021-03-10] MEDS ORDERED: LIDOCAINE 1% SDV 30ML VIAL As Ordered ONE (07:17)
[2021-03-10] MEDS ORDERED: LIDOCAINE 2% 100MG/5ML SDV (FOR ANES.) As Ordered ONE (07:23)
[2021-03-10] MEDS ORDERED: propofoL 200 MG/20 ML VIAL As Ordered ONE (07:23)
[2021-03-10] MEDS ORDERED: ROCURONIUM BROMIDE 50 MG/5 ML VIAL As Ordered ONE (07:23)
[2021-03-10] MEDS ORDERED: dexameTHASONE 4 MG/ML 1ML VIAL (J1100 PER 1MG) As Ordered ONE (07:23)
[2021-03-10] MEDS ORDERED: MIDAZOLAM INJ 2MG/2ML VIAL (J2250 PER 1MG) As Ordered ONE (07:24)
[2021-03-10] MEDS ORDERED: fentaNYL 100 MCG/2 ML INJECTION (J3010) As Ordered ONE (07:24)
[2021-03-10] MEDS ORDERED: LABETALOL 100MG/20ML VIAL As Ordered ONE (08:09)
[2021-03-10] MEDS ORDERED: SUGAMMADEX SODIUM 500 MG/5 ML VIAL (BRIDION) As Ordered ONE (08:38)
[2021-03-10] MEDS ORDERED: ONDANSETRON 4MG/2ML VIAL As Ordered ONE (08:38)
[2021-03-10] MEDS ORDERED: METOCLOPRAMIDE INJ 10MG/2ML VIAL (J2765 PER 1) As Ordered ONE (08:39)
--- NOTE | 2021-03-10 09:26 | REP ---
INDICATION: LEFT UPPER LOBE ABNORMALITY. COMPARISON: None. TECHNIQUE: Intraoperative imaging during bronchoscopy FINDINGS: Single last image hold demonstrates bronchoscope extending into the left upper lobe bronchus. IMPRESSION: Findings consistent with left upper lobe bronchoscopy <Electronically signed by Alex Middleton > 03/10/21 0923
[2021-03-10] MEDS ORDERED: METOCLOPRAMIDE INJ 10MG/2ML VIAL (J2765 PER 1) IV PRN (09:35)
[2021-03-10] MEDS ORDERED: fentaNYL 100 MCG/2 ML INJECTION (J3010) IV PRN (09:35)
[2021-03-10] MEDS ORDERED: LR 1,000 ML IV SCH (09:35)
[2021-03-10] MEDS ORDERED: ONDANSETRON 4MG/2ML VIAL IV PRN (09:35)
--- NOTE | 2021-03-10 09:48 | RO ---
OPERATIVE NOTE DATE OF OPERATION: 03/10/2021 PREOPERATIVE DIAGNOSIS: Left upper lobe nodule. POSTOPERATIVE DIAGNOSIS: Left upper lobe nodule with at least mild chronic bronchitis. PROCEDURE: Fiberoptic bronchoscopy with radial ultrasound, transbronchial biopsies via [place] Robot System and fluoroscopic guidance. SURGEON: Santi Esposito MD FACULTY PHYSICIAN: Dr. Gomez ANESTHESIA: General. Informed consent was obtained prior to the procedure. OPERATIVE FINDINGS: Mild chronic bronchitis. DESCRIPTION OF PROCEDURE: After the patient was identified and above anesthesia given, the fiberoptic bronchoscope was passed through the existing endotracheal tube. Tube was found to be in good position. Some mild secretions were encountered, they were easily suctioned clear. In sequential fashion right and left lungs were examined. All segments, subsegments of right middle and lower lobes easily identified, widely patent. The left upper and lower lung benson easily identified. Mild secretions and mild chronic bronchitis were noted. Secretions easily suctioned clear. With this cursory exam finished the [place] System was then launched. When reasonable access to the target was identified, radial ultrasound probe was passed. Good target was identified. Multiple biopsies were taken. Initial touch preps suggested normal lung tissue and therefore the area for biopsy was repositioned. Again confirmed with radial ultrasound probe and target marked with fluoroscopy. Again, additional biopsies were taken. Minimal bleeding was encountered. Topical thrombin as well as Epinephrine was used prior to withdrawal of the [place] Ridge System. After the [place] was removed the standard scope was reintroduced. There was some mild mucosal bleeding but nothing from the area of the biopsy sites. Topical Epinephrine was used. That scope was withdrawn and that portion of the procedure terminated. Fluoroscopic examination done immediately postprocedure showed no evidence of pneumothorax. Chest x-ray is ordered for one hour postprocedure.
--- NOTE | 2021-03-10 10:15 | REP ---
INDICATION: POST OP IN PACU/BRONCHOSCOPY /WILL CALL WHEN READY COMPARISON: 05/07/2019 TECHNIQUE: Portable AP view of the chest FINDINGS: Mediastinum and cardiac silhouette are normal. Lung benson demonstrate chronic changes. Subtle small opacity in the left mid/upper lung zone. No evidence for consolidation, effusion, or pneumothorax. IMPRESSION: No evidence for acute consolidation, effusion, or pneumothorax. <Electronically signed by Alex Middleton > 03/10/21 [id number]
[2021-03-10 10:19] VITALS: BP 158/75
== END 2021-03-10 10:50 | disposition home or self-care (01) ==
LOC: M SDC 06:07
PROVIDERS: ATTEND Internal Medicine Pulmonary Disease
DX: R91.1 Solitary pulmonary nodule (principal); J42 Unspecified chronic bronchitis; I25.2 Old myocardial infarction; I10 Essential (primary) hypertension; K44.9 Diaphragmatic hernia without obstruction or gangrene; K31.9 Disease of stomach and duodenum, unspecified; K22.70 Barrett's esophagus without dysplasia; M19.90 Unspecified osteoarthritis, unspecified site; F41.9 Anxiety disorder, unspecified; J45.40 Moderate persistent asthma, uncomplicated; R06.83 Snoring; J30.9 Allergic rhinitis, unspecified; Z87.891 Personal history of nicotine dependence; Z79.899 Other long term (current) drug therapy; Z79.51 Long term (current) use of inhaled steroids
CPT/HCPCS: 31628; 31654; 71045; 76000; 88305; J1100; J2250; J2405; J2765; J3010; S2900

== ENCOUNTER → 2021-03-24 | Outpatient (CLI) | payer OTHER ==
[~2021-03-24] MED LIST changes: -ALBUTEROL SULFATE 2.5 MG/0.5 ML INH NEB SOLN INH ONE; -LIDOCAINE 4% INJ 5ML AMP INH ONE
--- NOTE | 2021-03-24 10:26 | PFTRPT ---
Height: 66.00 Inches Weight: 218.00 Lbs BSA: 2.07 Diagnosis: R91.1 DATE: 03/24/2021 ORDERING PHYSICIAN: Santi Esposito MD Studies have excellent technical quality. Forced vital capacity is normal. FEV1 is in proportion. Obstructive index is therefore normal. Expiratory limit of the flow-volume loop is normal. Bronchodilator response is not tested. Total lung capacity is normal. Residual volume is in proportion. Diffusing capacity is normal and remains normal when corrected for alveolar volume. Hemoglobin is acceptable at 13.1. Airway resistance and conductance are normal. IMPRESSION: Normal study. MTDD
== END ==
LOC: M CARPUL 09:57
PROVIDERS: ATTEND Internal Medicine Pulmonary Disease
DX: R91.1 Solitary pulmonary nodule (principal); J45.40 Moderate persistent asthma, uncomplicated

== ENCOUNTER 2021-06-15 09:49 | Emergency (ER) | payer OTHER ==
[~2021-06-15] VITALS: Ht 170.2 cm; Wt 99.0 kg
[~2021-06-15 09:49] MED LIST changes: -AMLO2.5C4 PO; +AMLO2.5C6 PO
[2021-06-15 09:50] VITALS: BP 151/88
[2021-06-15] MEDS ORDERED: OXYC-517 (10:03)
[2021-06-15] MEDS ORDERED: METH-1164 (10:03)
[2021-06-15 14:21] LABS: BASO % 0.4 % (0.0-1.0); EOS # 0.1 10^3/uL (0.0-0.5); EOS % 0.8 % (0.0-3.0); HEMATOCRIT 43.1 % (36.0-47.0); HEMOGLOBIN 14.3 g/dl (12.0-15.5); LYMPH # 2.9 10^3/uL (1.5-5.0); LYMPH % 26.6 % (24.0-44.0); MEAN CORPUSCULAR HGB CONC 33.2 g/dl (32.0-36.5); MEAN CORPUSCULAR VOLUME 93.5 fl (80.0-96.0); MONO # 0.8 10^3/uL (0.0-0.8); MONO % 7.1 % (2.0-8.0); NEUTROPHILS % 64.7 % (36.0-66.0); PLATELET COUNT, AUTOMATED 377 10^3/uL (150-450); RED BLOOD COUNT 4.61 10^6/uL (4.00-5.40); WHITE BLOOD COUNT 10.8 10^3/uL (4.0-10.0)
[2021-06-15 14:32] LABS: INR 0.95; PROTHROMBIN TIME 13.1 SECONDS (12.7-14.5)
[2021-06-15 14:33] LABS: PARTIAL THROMBOPLASTIN TIME 27.7 SECONDS (25.9-37.0)
[2021-06-15 14:41] LABS: ERYTHROCYTE SEDIMENTATION RATE 37 mm/hr (0-30)
[2021-06-15] MEDS ORDERED: ISOVUE-370 76% 100ML VIAL As Ordered ONE (14:42)
[2021-06-15 15:08] LABS: ALBUMIN 3.8 GM/DL (3.2-5.2); BILIRUBIN,DIRECT 0.1 MG/DL (0.0-0.2); BILIRUBIN,TOTAL 0.5 MG/DL (0.2-1.0); C REACTIVE PROTEIN QUANTITATIV 1.38 MG/DL (0.00-0.30); FREE T4 1.11 NG/DL (0.76-1.46); THYROID STIMULATING HORMONE 0.745 uIU/ML (0.358-3.740); TOTAL PROTEIN 7.7 GM/DL (6.4-8.2)
== END 2021-06-15 15:58 | disposition home or self-care (01) ==
LOC: M ED 09:49
DX: J94.8 Other specified pleural conditions (principal); I10 Essential (primary) hypertension; J45.909 Unspecified asthma, uncomplicated; F41.9 Anxiety disorder, unspecified; I25.2 Old myocardial infarction; Z85.118 Personal history of other malignant neoplasm of bronchus and lung; Z79.899 Other long term (current) drug therapy; Z79.51 Long term (current) use of inhaled steroids; Z87.891 Personal history of nicotine dependence
CPT/HCPCS: 36415; 71046; 71275; 80047; 80076; 83690; 83880; 84439; 84443; 84484; 85025; 85610; 85652; 85730; 86140; 93005; 99284; Q9967

== ENCOUNTER → 2021-06-30 | Outpatient (CLI) | payer OTHER ==
[~2021-06-30] MED LIST changes: +METH-1164; +OXYC-517
== END ==
LOC: M PLAIMG 10:51
PROVIDERS: ATTEND Otolaryngology
DX: J32.9 Chronic sinusitis, unspecified (principal)

== ENCOUNTER → 2021-07-02 | Outpatient (CLI) | payer OTHER ==
[2021-07-02 15:55] LABS: BASO # 0.1 10^3/uL (0.0-0.2); BASO % 0.9 % (0.0-1.0); EOS # 0.1 10^3/uL (0.0-0.5); EOS % 0.8 % (0.0-3.0); HEMATOCRIT 42.6 % (36.0-47.0); HEMOGLOBIN 13.9 g/dl (12.0-15.5); LYMPH # 4.3 10^3/uL (1.5-5.0); LYMPH % 46.6 % (24.0-44.0); MEAN CORPUSCULAR HEMOGLOBIN 30.8 pg (27.0-33.0); MEAN CORPUSCULAR HGB CONC 32.6 g/dl (32.0-36.5); MEAN CORPUSCULAR VOLUME 94.2 fl (80.0-96.0); MONO # 0.6 10^3/uL (0.0-0.8); MONO % 6.2 % (2.0-8.0); NEUTROPHILS # 4.2 10^3/uL (1.5-8.5); NEUTROPHILS % 45.2 % (36.0-66.0); PLATELET COUNT, AUTOMATED 380 10^3/uL (150-450); RED BLOOD COUNT 4.52 10^6/uL (4.00-5.40); WHITE BLOOD COUNT 9.3 10^3/uL (4.0-10.0)
[2021-07-02 16:37] LABS: ALBUMIN 3.8 GM/DL (3.2-5.2); ALT/SGPT 27 U/L (12-78); BILIRUBIN,TOTAL 0.3 MG/DL (0.2-1.0); BLOOD UREA NITROGEN 16 MG/DL (7-18); CALCIUM LEVEL 9.3 MG/DL (8.5-10.1); CARBON DIOXIDE LEVEL 24 MEQ/L (21-32); CHLORIDE LEVEL 105 MEQ/L (98-107); CREATININE FOR GFR 0.74 MG/DL (0.55-1.30); GLOMERULAR FILTRATION RATE > 60.0 (>51); GLUCOSE, FASTING 104 MG/DL (70-100); POTASSIUM SERUM 4.5 MEQ/L (3.5-5.1); RHEUMATOID FACTOR QUANT < 10.0 IU/ML (<15.0); SODIUM LEVEL 136 MEQ/L (136-145); TOTAL 25(OH) VITAMIN D 31.3 NG/ML (30.0-100.0); TOTAL PROTEIN 7.4 GM/DL (6.4-8.2)
[2021-07-02 17:54] LABS: ERYTHROCYTE SEDIMENTATION RATE 6 mm/hr (0-30)
[2021-07-05 15:09] LABS: ANTINUCLEAR ANTIBODIES DIRECT Negative (Negative)
== END ==
LOC: M WUC 14:26
PROVIDERS: ATTEND Psychiatry & Neurology Neurology
DX: R51.9 Headache, unspecified (principal)

== ENCOUNTER → 2021-11-01 | Outpatient (CLI) | payer OTHER ==
[~2021-11-01] MED LIST changes: +E-Z-GAS II EFFERVESCENT PACKET (SODIUM BICARB./CITRIC ACID/SIMETHICONE) As Ordered ONE; +E-Z-HD 98% w/w 340GM SUSP BTL As Ordered ONE; +E-Z-PAQUE 96% w/w SUSP 176GM BTL As Ordered ONE
== END ==
LOC: M RAD 08:45
PROVIDERS: ATTEND Surgery
DX: K21.9 Gastro-esophageal reflux disease without esophagitis (principal)

== ENCOUNTER 2021-11-27 11:34 | Emergency (ER) | payer OTHER ==
[~2021-11-27] VITALS: Ht 167.6 cm; Wt 93.7 kg
[~2021-11-27 11:34] MED LIST changes: -E-Z-GAS II EFFERVESCENT PACKET (SODIUM BICARB./CITRIC ACID/SIMETHICONE) As Ordered ONE; -E-Z-HD 98% w/w 340GM SUSP BTL As Ordered ONE; -E-Z-PAQUE 96% w/w SUSP 176GM BTL As Ordered ONE
[2021-11-27] MEDS ORDERED: SIME80TA16 PO (11:53)
[2021-11-27] MEDS ORDERED: PRED10TA2 PO (11:53)
[2021-11-27 12:11] LABS: BASO # 0.1 10^3/uL (0.0-0.2); BASO % 0.9 % (0.0-1.0); EOS # 0.1 10^3/uL (0.0-0.5); EOS % 0.8 % (0.0-3.0); HEMOGLOBIN 15.7 g/dl (12.0-15.5); LYMPH # 4.4 10^3/uL (1.5-5.0); LYMPH % 42.3 % (24.0-44.0); MEAN CORPUSCULAR HEMOGLOBIN 31.6 pg (27.0-33.0); MEAN CORPUSCULAR HGB CONC 34.1 g/dl (32.0-36.5); MEAN CORPUSCULAR VOLUME 92.6 fl (80.0-96.0); MONO # 0.7 10^3/uL (0.0-0.8); MONO % 6.7 % (2.0-8.0); NEUTROPHILS # 5.1 10^3/uL (1.5-8.5); NEUTROPHILS % 49.1 % (36.0-66.0); PLATELET COUNT, AUTOMATED 372 10^3/uL (150-450); RED BLOOD COUNT 4.97 10^6/uL (4.00-5.40); WHITE BLOOD COUNT 10.4 10^3/uL (4.0-10.0)
[2021-11-27 12:48] LABS: ALBUMIN 4.2 GM/DL (3.2-5.2); ALT/SGPT 35 U/L (12-78); BILIRUBIN,DIRECT 0.2 MG/DL (0.0-0.2); BILIRUBIN,TOTAL 0.6 MG/DL (0.2-1.0); BLOOD UREA NITROGEN 12 MG/DL (7-18); CALCIUM LEVEL 10.2 MG/DL (8.5-10.1); CARBON DIOXIDE LEVEL 25 MEQ/L (21-32); CHLORIDE LEVEL 107 MEQ/L (98-107); GLOMERULAR FILTRATION RATE > 60.0 (>51); GLUCOSE, FASTING 92 MG/DL (70-100); LIPASE 41 U/L (73-393); SODIUM LEVEL 141 MEQ/L (136-145); TOTAL PROTEIN 7.8 GM/DL (6.4-8.2)
[2021-11-27] MEDS ORDERED: ISOVUE-370 76% 100ML VIAL As Ordered ONE (13:41)
[2021-11-27] MEDS ORDERED: NS 1,000 ML IV ONE (14:00)
[2021-11-27 15:08] VITALS: BP 138/70
== END 2021-11-27 15:12 | disposition home or self-care (01) ==
LOC: M ED 11:34
DX: K22.2 Esophageal obstruction (principal); I10 Essential (primary) hypertension; J45.909 Unspecified asthma, uncomplicated; F41.9 Anxiety disorder, unspecified; Z85.118 Personal history of other malignant neoplasm of bronchus and lung; Z86.73 Personal history of transient ischemic attack (TIA), and cerebral infarction without residual deficits; Z79.899 Other long term (current) drug therapy
CPT/HCPCS: 71260; 80048; 80076; 83690; 85025; 93005; 96360; 99284; Q9967

== ENCOUNTER → 2021-12-17 | Outpatient (CLI) | payer OTHER ==
[~2021-12-17] MED LIST changes: +PRED10TA2 PO; +SIME80TA16 PO
[2021-12-17 11:37] LABS: CREATININE FOR GFR 0.62 MG/DL (0.55-1.30); GLOMERULAR FILTRATION RATE > 60.0 (>51)
== END ==
LOC: M WUC 08:21
PROVIDERS: ATTEND Physician Assistant
DX: C34.92 Malignant neoplasm of unspecified part of left bronchus or lung (principal)

== ENCOUNTER → 2022-03-25 | Outpatient (CLI) | payer OTHER ==
[2022-03-25 17:30] LABS: BASO # 0.1 10^3/uL (0.0-0.2); BASO % 0.7 % (0.0-1.0); EOS # 0.1 10^3/uL (0.0-0.5); EOS % 0.8 % (0.0-3.0); HEMATOCRIT 43.9 % (36.0-47.0); HEMOGLOBIN 13.8 g/dl (12.0-15.5); LYMPH # 3.4 10^3/uL (1.5-5.0); MEAN CORPUSCULAR HEMOGLOBIN 30.6 pg (27.0-33.0); MEAN CORPUSCULAR HGB CONC 31.4 g/dl (32.0-36.5); MEAN CORPUSCULAR VOLUME 97.3 fl (80.0-96.0); MONO # 0.6 10^3/uL (0.0-0.8); NEUTROPHILS # 4.1 10^3/uL (1.5-8.5); NEUTROPHILS % 50.3 % (36.0-66.0); PLATELET COUNT, AUTOMATED 321 10^3/uL (150-450); RED BLOOD COUNT 4.51 10^6/uL (4.00-5.40); WHITE BLOOD COUNT 8.2 10^3/uL (4.0-10.0)
[2022-03-25 18:11] LABS: ALBUMIN 3.9 GM/DL (3.2-5.2); ALT/SGPT 22 U/L (12-78); BILIRUBIN,TOTAL 0.3 MG/DL (0.2-1.0); BLOOD UREA NITROGEN 14 MG/DL (7-18); CALCIUM LEVEL 9.3 MG/DL (8.5-10.1); CARBON DIOXIDE LEVEL 27 MEQ/L (21-32); CHLORIDE LEVEL 107 MEQ/L (98-107); GLOMERULAR FILTRATION RATE > 60.0 (>51); GLUCOSE, FASTING 97 MG/DL (70-100); POTASSIUM SERUM 4.7 MEQ/L (3.5-5.1); RHEUMATOID FACTOR QUANT < 10.0 IU/ML (<15.0); SODIUM LEVEL 138 MEQ/L (136-145); THYROID STIMULATING HORMONE 0.709 uIU/ML (0.358-3.740); TOTAL PROTEIN 7.4 GM/DL (6.4-8.2)
[2022-03-25 18:14] LABS: ERYTHROCYTE SEDIMENTATION RATE 4 mm/hr (0-30)
[2022-03-25 18:34] LABS: TOTAL 25(OH) VITAMIN D 48.2 NG/ML (30.0-100.0)
[2022-03-28 13:07] LABS: ANTINUCLEAR ANTIBODIES DIRECT Negative (Negative)
== END ==
LOC: M WUC 11:04
PROVIDERS: ATTEND Psychiatry & Neurology Neurology
DX: R51.9 Headache, unspecified (principal)

== ENCOUNTER → 2022-04-11 | Outpatient (CLI) | payer OTHER ==
[~2022-04-11] MED LIST changes: +E-Z-GAS II EFFERVESCENT PACKET (SODIUM BICARB./CITRIC ACID/SIMETHICONE) As Ordered ONE; +E-Z-HD 98% w/w 340GM SUSP BTL As Ordered ONE; +E-Z-PAQUE 96% w/w SUSP 176GM BTL As Ordered ONE
== END ==
LOC: M RAD 08:31
PROVIDERS: ATTEND Physician Assistant Surgical
DX: R10.13 Epigastric pain (principal)

== ENCOUNTER → 2022-07-08 | Outpatient (CLI) | payer OTHER ==
[~2022-07-08] MED LIST changes: -E-Z-GAS II EFFERVESCENT PACKET (SODIUM BICARB./CITRIC ACID/SIMETHICONE) As Ordered ONE; -E-Z-HD 98% w/w 340GM SUSP BTL As Ordered ONE; -E-Z-PAQUE 96% w/w SUSP 176GM BTL As Ordered ONE; +ISOVUE-370 76% 100ML VIAL As Ordered ONE
== END ==
LOC: M RAD 14:03
PROVIDERS: ATTEND Physician Assistant
DX: C34.92 Malignant neoplasm of unspecified part of left bronchus or lung (principal)

== ENCOUNTER → 2022-09-01 | Outpatient (CLI) | payer OTHER ==
[~2022-09-01] MED LIST changes: -ISOVUE-370 76% 100ML VIAL As Ordered ONE
== END ==
LOC: M WHC 15:40
PROVIDERS: ATTEND Specialist
DX: Z12.31 Encounter for screening mammogram for malignant neoplasm of breast (principal)

== ENCOUNTER → 2023-01-03 | Outpatient (CLI) | payer OTHER ==
[~2023-01-03] MED LIST changes: -AMIT25TA17 PO; +AMIT25TA19 PO
== END ==
LOC: M PLAIMG 10:22
PROVIDERS: ATTEND Nurse Practitioner Family
DX: C34.92 Malignant neoplasm of unspecified part of left bronchus or lung (principal)

== ENCOUNTER → 2023-07-05 | Outpatient (CLI) | payer OTHER ==
[~2023-07-05] MED LIST changes: +ISOVUE-370 76% 100ML VIAL As Ordered ONE
== END ==
LOC: M RAD 10:49
PROVIDERS: ATTEND Physician Assistant
DX: Z85.118 Personal history of other malignant neoplasm of bronchus and lung (principal); Z90.2 Acquired absence of lung [part of]
CPT/HCPCS: 71260; Q9967

== ENCOUNTER 2023-12-07 09:27 | Day surgery (SDC) | payer OTHER ==
[~2023-12-07] VITALS: Ht 167.6 cm; Wt 83.5 kg
[~2023-12-07 09:27] MED LIST changes: -AZEL0.055 NARES; +AZEL1SPR4 NARES; -ISOVUE-370 76% 100ML VIAL As Ordered ONE; +QVAR80AE8 IN; +TIRZ5PEN3 SC; +TRAZ-252 PO; +VENTAER INH
[2023-12-07] MEDS: NS 1,000 ML IV ONE (09:43)
[2023-12-07] MEDS ORDERED: propofoL 200 MG/20 ML VIAL As Ordered ONE (11:13)
[2023-12-07] MEDS ORDERED: LIDOCAINE 2% 100MG/5ML SDV (FOR ANES.) As Ordered ONE (11:13)
[2023-12-07 11:33] VITALS: TEMP 99
[2023-12-07 11:49] VITALS: BP 112/59; O2SAT 99
== END 2023-12-07 11:55 | disposition home or self-care (01) ==
LOC: M OPP 09:27
PROVIDERS: ATTEND Surgery
DX: Z12.11 Encounter for screening for malignant neoplasm of colon (principal); Z86.010 Personal history of colon polyps; D12.8 Benign neoplasm of rectum; K57.30 Diverticulosis of large intestine without perforation or abscess without bleeding; R07.9 Chest pain, unspecified; I10 Essential (primary) hypertension; J45.909 Unspecified asthma, uncomplicated; Z87.891 Personal history of nicotine dependence; Z86.74 Personal history of sudden cardiac arrest; Z79.51 Long term (current) use of inhaled steroids; Z79.52 Long term (current) use of systemic steroids; Z79.82 Long term (current) use of aspirin; Z79.85 Long-term (current) use of injectable non-insulin antidiabetic drugs; Z79.899 Other long term (current) drug therapy

== ENCOUNTER → 2024-01-01 | Outpatient (CLI) | payer OTHER ==
[~2024-01-01] MED LIST changes: +ISOVUE-370 76% 100ML VIAL As Ordered ONE
== END ==
LOC: M RAD 08:48
PROVIDERS: ATTEND Physician Assistant
DX: C34.92 Malignant neoplasm of unspecified part of left bronchus or lung (principal); Z90.2 Acquired absence of lung [part of]
CPT/HCPCS: 71260; Q9967

== ENCOUNTER → 2024-04-04 | Outpatient (CLI) | payer OTHER ==
[~2024-04-04] MED LIST changes: -ISOVUE-370 76% 100ML VIAL As Ordered ONE
[2024-04-04 16:58] LABS: ALBUMIN 3.8 G/DL (3.2-5.2); ALKALINE PHOSPHATASE 79 U/L (35-104); ALT/SGPT 30 U/L (7.0-40); AST/SGOT 11 U/L (<34); BILIRUBIN,TOTAL 0.5 MG/DL (0.3-1.2); BLOOD UREA NITROGEN 15 MG/DL (9-23); CALCIUM LEVEL 9.3 MG/DL (8.5-10.1); CARBON DIOXIDE LEVEL 28 MMOL/L (20-31); CHLORIDE LEVEL 106 MMOL/L (98-107); CREATININE FOR GFR 0.64 MG/DL (0.55-1.30); GLOMERULAR FILTRATION RATE > 60.0 (>51); GLUCOSE, FASTING 81 MG/DL (60-100); POTASSIUM SERUM 3.8 MMOL/L (3.5-5.1); SODIUM LEVEL 138 MMOL/L (136-145); TOTAL PROTEIN 7.1 G/DL (5.7-8.2)
[2024-04-04 17:00] LABS: FOLATE > 24.00 NG/ML (>5.4); VITAMIN B12 LEVEL 681 PG/ML (211-911)
== END ==
LOC: M WUC 13:23
PROVIDERS: ATTEND Nurse Practitioner
DX: R42 Dizziness and giddiness (principal); G31.84 Mild cognitive impairment of uncertain or unknown etiology; R40.4 Transient alteration of awareness; H53.8 Other visual disturbances; G43.001 Migraine without aura, not intractable, with status migrainosus; G44.89 Other headache syndrome

== ENCOUNTER → 2024-04-30 | Outpatient (REF) | payer OTHER | LOC: M LAB REF 12:17 | PROVIDERS: ATTEND Internal Medicine | DX: R10.11 Right upper quadrant pain (principal) ==

== ENCOUNTER → 2024-05-21 | Outpatient (CLI) | payer OTHER ==
[~2024-05-21] MED LIST changes: +ISOVUE-370 76% 100ML VIAL As Ordered ONE
== END ==
LOC: M RAD 06:39
PROVIDERS: ATTEND Nurse Practitioner
DX: R42 Dizziness and giddiness (principal); H53.8 Other visual disturbances; G43.001 Migraine without aura, not intractable, with status migrainosus; G31.84 Mild cognitive impairment of uncertain or unknown etiology; R40.4 Transient alteration of awareness; R90.82 White matter disease, unspecified
CPT/HCPCS: 70496; 70498; 70551; Q9967

== ENCOUNTER → 2024-06-06 | Outpatient (CLI) | payer OTHER ==
[~2024-06-06] MED LIST changes: -ISOVUE-370 76% 100ML VIAL As Ordered ONE
== END ==
LOC: M WHC 06:48
PROVIDERS: ATTEND Internal Medicine
DX: Z12.31 Encounter for screening mammogram for malignant neoplasm of breast (principal)

== ENCOUNTER → 2024-07-05 | Outpatient (CLI) | payer OTHER | LOC: M RAD 07:14 | PROVIDERS: ATTEND Nurse Practitioner Family | DX: C34.92 Malignant neoplasm of unspecified part of left bronchus or lung (principal); Z90.2 Acquired absence of lung [part of] ==

== ENCOUNTER → 2024-07-18 | Outpatient (CLI) | payer OTHER ==
[~2024-07-18] MED LIST changes: +PROHANCE 279.3MG/ML 15ML VIAL As Ordered ONE
== END ==
LOC: M RAD 08:52
PROVIDERS: ATTEND Nurse Practitioner
DX: R90.82 White matter disease, unspecified (principal); R42 Dizziness and giddiness; G31.84 Mild cognitive impairment of uncertain or unknown etiology; R40.4 Transient alteration of awareness; H53.8 Other visual disturbances; G43.001 Migraine without aura, not intractable, with status migrainosus; G44.89 Other headache syndrome
CPT/HCPCS: 70553; A9576

== ENCOUNTER → 2025-01-21 | Outpatient (CLI) | payer OTHER ==
[~2025-01-21] MED LIST changes: -PROHANCE 279.3MG/ML 15ML VIAL As Ordered ONE
== END ==
LOC: M PLAIMG 11:56
PROVIDERS: ATTEND Nurse Practitioner Family
DX: C34.92 Malignant neoplasm of unspecified part of left bronchus or lung (principal); J84.10 Pulmonary fibrosis, unspecified

== ENCOUNTER 2025-04-21 12:15 | Emergency (ER) | payer OTHER ==
[~2025-04-21] VITALS: Ht 167.6 cm; Wt 69.3 kg
[2025-04-21] MEDS: KETOROLAC 30 MG/ML 1 ML VIAL IM ONE (16:36)
[2025-04-21 17:22] VITALS: BP 131/72; TEMP 97.1; O2SAT 99
[2025-04-21] MEDS ORDERED: METH-1164 PO (18:09)
[2025-04-21] MEDS ORDERED: KETO-204 PO (18:09)
== END 2025-04-21 18:14 | disposition home or self-care (01) ==
LOC: M ED 12:15
DX: M25.551 Pain in right hip (principal); M16.11 Unilateral primary osteoarthritis, right hip; Z91.09 Other allergy status, other than to drugs and biological substances; Z79.51 Long term (current) use of inhaled steroids; Z79.2 Long term (current) use of antibiotics; Z79.899 Other long term (current) drug therapy
CPT/HCPCS: 73502; 96372; 99283; J1885

== ENCOUNTER → 2025-05-01 | Outpatient (REF) | payer OTHER ==
[~2025-05-01] MED LIST changes: +KETO-204 PO; +METH-1164 PO
[2025-05-01 14:33] LABS: LUTEINIZING HORMONE 39.9 mIU/ML
== END ==
LOC: M LAB REF 13:51
PROVIDERS: ATTEND Internal Medicine
DX: R10.11 Right upper quadrant pain (principal); R53.83 Other fatigue